=== PATIENT | female | born 1960 | race Caucasian/White ===

== ENCOUNTER 2019-10-13 11:40 | Emergency (ER) | payer OTHER ==
--- NOTE | 2019-10-13 12:50 | ER ---
Nurse's Notes [facility] Name: Christa Colunga Age: 59 yrs Sex: Female : 1960 Arrival Date: 10/13/2019 Time: 11:47 Bed 23 Private MD: Diagnosis: Scabies Presentation: 10/13 11:57 Presenting complaint: Itchy rash on torso and BUE x 3 weeks, 2 family members recently hb dx with scabies. Transition of care: patient was not received from another setting of care. 11:57 Method Of Arrival: Ambulatory hb 11:57 Risk Assessment: Do you want to hurt yourself or someone else? Patient reports no hb desire to harm self or others. Initial Sepsis Screen: Does the patient meet any 2 criteria? No. Patient's initial sepsis screen is negative. Does the patient have a suspected source of infection? No. Patient's initial sepsis screen is negative. Care prior to arrival: None. 11:57 Acuity: NICOLAS 4 hb 12:11 Onset: The symptoms/episode began/occurred gradually. Anaphylaxis evaluation, no signs mg2 or symptoms of anaphylaxis were noted. Onset of symptoms was September 2019. Historical: - Allergies: 11:58 No Known Allergies; hb - Immunization history:: Adult Immunizations up to date. - Coronavirus screen:: The patient has NOT traveled to [place], [place], or [place] in the past 14 days. The patient has NOT had contact with known/suspected case of Coronavirus? Proceed with normal triage procedures. - Social history:: Smoking status: Patient denies any tobacco usage or history of. - Family history:: not pertinent. - Ebola Screening: : No symptoms or risks identified at this time. Screenin:09 Abuse screen: Denies threats or abuse. Denies injuries from another. Nutritional mg2 screening: No deficits noted. Tuberculosis screening: No symptoms or risk factors identified. Fall Risk None identified. Assessment: 12:09 General: Appears in no apparent distress. comfortable, Behavior is calm, cooperative. mg2 Pain: Denies pain. Neuro: Level of Consciousness is awake, alert, obeys commands, Oriented to person, place, time, situation. Cardiovascular: Capillary refill < 3 seconds Patient's skin is warm and dry. Respiratory: Airway is patent Respiratory effort is even, unlabored, Respiratory pattern is regular, symmetrical, Breath sounds are clear bilaterally. in mediastinum, right upper lobe, left upper lobe, right middle lobe, left lower lobe and right lower lobe. GI: No signs and/or symptoms were reported involving the gastrointestinal system. : No signs and/or symptoms were reported regarding the genitourinary system. EENT: No signs and/or symptoms were reported regarding the EENT system. Derm: Skin is intact, is healthy with good turgor, Skin is pink, warm \T\ dry. normal, Reports itching. Musculoskeletal: Circulation, motion, and sensation intact. Capillary refill < 3 seconds. Vital Signs: 11:58 BP 128 / 89; Pulse 90; Resp 16; Temp 97.7; Pulse Ox 99% ; Weight 63.5 kg; Height 5 ft. hb 1 in. (154.94 cm); Pain 3/10; 12:59 BP 122 / 80; Pulse 91; Resp 18; Temp 98; Pulse Ox 100% on R/A; mg2 11:58 Body Mass Index 26.45 (63.50 kg, 154.94 cm) ED Course: 11:47 Patient arrived in ED. fj1 11:54 Farshad Pace, RN is Primary Nurse. mg2 11:56 Smooth Martinez MD is Attending Physician. zackery 11:58 Triage completed. hb 11:58 Arm band placed on. hb 12:09 Patient has correct armband on for positive identification. mg2 12:09 No provider procedures requiring assistance completed. Patient did not have IV access mg2 during this emergency room visit. 12:48 Wilfredo Adrian MD is Referral Physician. zackery Administered Medications: No medications were administered Outcome: 12:49 Discharge ordered by . zackery 12:59 Discharged to home ambulatory. mg2 12:59 Condition: stable 12:59 Discharge instructions given to patient, Instructed on discharge instructions, follow up and referral plans. medication usage, Demonstrated understanding of instructions, follow-up care, medications, Prescriptions given X 2. 12:59 Patient left the ED. mg2 Signatures: Smooth Martinez MD MD cha Baxter, Heather, RN RN Farshad Pace, ANIKET RN [facility] Srinivasa Ramírez fj
--- NOTE | 2019-10-13 12:50 | EDPHYS ---
Physician Documentation [facility] Name: Christa Colunga Age: 59 yrs Sex: Female : 1960 Arrival Date: 10/13/2019 Time: 11:47 Bed 23 Private MD: ED Physician Smooth Martinez HPI: 10/13 12:45 This 59 yrs old Female presents to ER via Ambulatory with complaints of zackery Itching. 12:45 The patient's rash thought to be caused by Dermatitis. The rash is located on the body zackery diffusely. The rash can be described as erythematous. Onset: The symptoms/episode began/occurred 1 week(s) ago. Associated signs and symptoms: Pertinent positives: itching. Severity of symptoms: At their worst the symptoms were mild in the emergency department the symptoms are unchanged. The patient has not experienced similar symptoms in the past. Historical: - Allergies: 11:58 No Known Allergies; hb - Immunization history:: Adult Immunizations up to date. - Coronavirus screen:: The patient has NOT traveled to [place], [place], or [place] in the past 14 days. The patient has NOT had contact with known/suspected case of Coronavirus? Proceed with normal triage procedures. - Social history:: Smoking status: Patient denies any tobacco usage or history of. - Family history:: not pertinent. - Ebola Screening: : No symptoms or risks identified at this time. ROS: 12:45 Constitutional: Negative for fever, chills, and weight loss, Eyes: Negative for injury, zackery pain, redness, and discharge, ENT: Negative for injury, pain, and discharge, Neck: Negative for injury, pain, and swelling, Cardiovascular: Negative for chest pain, palpitations, and edema, Respiratory: Negative for shortness of breath, cough, wheezing, and pleuritic chest pain, Abdomen/GI: Negative for abdominal pain, nausea, vomiting, diarrhea, and constipation, Back: Negative for injury and pain, : Negative for injury, bleeding, discharge, and swelling, MS/Extremity: Negative for injury and deformity, Neuro: Negative for headache, weakness, numbness, tingling, and seizure, Endocrine: Negative for neck swelling, polydipsia, polyuria, polyphagia, and marked weight changes, Hematologic/Lymphatic: Negative for swollen nodes, abnormal bleeding, and unusual bruising. 12:45 Skin: Positive for lesions, diffusely. Exam: 12:45 Constitutional: This is a well developed, well nourished patient who is awake, alert, zackery and in no acute distress. Head/Face: Normocephalic, atraumatic. Eyes: Pupils equal round and reactive to light, extra-ocular motions intact. Lids and lashes normal. Conjunctiva and sclera are non-icteric and not injected. Cornea within normal limits. Periorbital areas with no swelling, redness, or edema. ENT: Nares patent. No nasal discharge, no septal abnormalities noted. Tympanic membranes are normal and external auditory canals are clear. Oropharynx with no redness, swelling, or masses, exudates, or evidence of obstruction, uvula midline. Mucous membranes moist. Neck: Trachea midline, no thyromegaly or masses palpated, and no cervical lymphadenopathy. Supple, full range of motion without nuchal rigidity, or vertebral point tenderness. No Meningismus. Chest/axilla: Normal chest wall appearance and motion. Nontender with no deformity. No lesions are appreciated. Cardiovascular: Regular rate and rhythm with a normal S1 and S2. No gallops, murmurs, or rubs. Normal PMI, no JVD. No pulse deficits. Respiratory: Lungs have equal breath sounds bilaterally, clear to auscultation and percussion. No rales, rhonchi or wheezes noted. No increased work of breathing, no retractions or nasal flaring. Abdomen/GI: Soft, non-tender, with normal bowel sounds. No distension or tympany. No guarding or rebound. No evidence of tenderness throughout. Back: No spinal tenderness. No costovertebral tenderness. Full range of motion. MS/ Extremity: Pulses equal, no cyanosis. Neurovascular intact. Full, normal range of motion. Neuro: Awake and alert, GCS 15, oriented to person, place, time, and situation. Cranial nerves II-XII grossly intact. Motor strength 5/5 in all extremities. Sensory grossly intact. Cerebellar exam normal. Normal gait. Psych: Awake, alert, with orientation to person, place and time. Behavior, mood, and affect are within normal limits. 12:45 Skin: rash a mild rash is noted, rash can be described as erythematous, linear, nonspecific. Vital Signs: 11:58 BP 128 / 89; Pulse 90; Resp 16; Temp 97.7; Pulse Ox 99% ; Weight 63.5 kg; Height 5 ft. hb 1 in. (154.94 cm); Pain 3/10; 12:59 BP 122 / 80; Pulse 91; Resp 18; Temp 98; Pulse Ox 100% on R/A; mg2 11:58 Body Mass Index 26.45 (63.50 kg, 154.94 cm) hb MDM: 11:56 Patient medically screened. [facility] 12:48 Data reviewed: vital signs, nurses notes. [facility] Administered Medications: No medications were administered Disposition: 10/13/19 12:49 Discharged to Home. Impression: Scabies. - Condition is Stable. - Discharge Instructions: Scabies, Adult. - Prescriptions for Elimite 5 % Topical Cream - apply 1 application by TOPICAL route one time Wash after 12 hours.; 60 gram. Hydroxyzine HCl 25 mg Oral Tablet - take 1 tablet by ORAL route every 6 hours As needed; 30 tablet. - Medication Reconciliation Form, Thank You Letter, Antibiotic Education, Prescription Opioid Use form. - Follow up: Private Physician; When: 2 - 3 days; Reason: Recheck today's complaints, Continuance of care, Re-evaluation by your physician. Follow up: Wilfredo Adrian MD; When: 2 - 3 days; Reason: Recheck today's complaints, Re-evaluation by your physician. - Problem is new. - Symptoms have improved. Signatures: Smooth Martinez MD MD [facility] Leena Hughes, ANIKET RN Farshad Pace RN RN mg2 Corrections: (The following items were deleted from the chart) 12:59 12:49 10/13/2019 12:49 Discharged to Home. Impression: Scabies. Condition is Stable. mg2 Forms are Medication Reconciliation Form, Thank You Letter, Antibiotic Education, Prescription Opioid Use. Follow up: Private Physician; When: 2 - 3 days; Reason: Recheck today's complaints, Continuance of care, Re-evaluation by your physician. Follow up: Wilfredo Adrian; When: 2 - 3 days; Reason: Recheck today's complaints, Re-evaluation by your physician. Problem is new. Symptoms have improved. [facility]
[2019-10-13 13:14] VITALS: BP 122/80; TEMP 98; O2SAT 100
== END 2019-10-13 12:59 | disposition home or self-care (01) ==
LOC: ER 11:40
DX: B86 Scabies (principal)
CPT/HCPCS: 99282